=== PATIENT | female | born 1935 | race Caucasian/White ===

== ENCOUNTER 2017-08-02 16:19 | Emergency (ER) | payer SELFPAY ==
--- NOTE | 2017-08-02 16:52 | UC ---
Complaint Female HPI - HPI Summary HPI Summary: 82 yo WF h/o Alzheimer's and HTN looked after by her grandson c/o lower abd pain in UC today. Per daughter (who does not live with her) and son in law, pt reportedly also c/o CP AND abd pains. Pt wears depends and is unaware of her hydration status. According to her daughter pt is poorly looked after with a handicapped son at home and a son in law who is only able to come see her intermittently to see if she ate or not. Has h/o urinary incontinence and " wears depends" but not today for some reason. - History Of Current Complaint Chief Complaint: UCChestPain Stated Complaint: CHEST PAIN Time Seen by Provider: 08/02/17 16:37 Hx Obtained From: Patient Hx From Patient Unobtainable Due To: Other ?: No Onset/Duration: Lasting Days Severity Initially: Moderate Severity Currently: Moderate Pain Intensity: 5 Character: Dull - Allergies/Home Medications Allergies/Adverse Reactions: Allergies Allergy/AdvReac Type Severity Reaction Status Date / Time No Known Allergies Allergy Verified 08/02/17 16:25 Home Medications: Home Medications NK [No Home Medications Reported] 08/02/17 [History Confirmed 08/02/17] PMH/Surg Hx/FS Hx/Imm Hx Previously Healthy: Yes Cardiovascular History: Hypertension - Surgical History Surgical History: None - Social History Alcohol Use: None Substance Use Type: None Smoking Status (MU): Former Smoker Review of Systems Constitutional: Negative Skin: Negative Eyes: Negative ENT: Negative Respiratory: Negative Cardiovascular: Negative Gastrointestinal: Negative Genitourinary: Other - lower abd pains Motor: Negative Neurovascular: Negative Musculoskeletal: Negative Neurological: Negative Psychological: Negative All Other Systems Reviewed And Are Negative: Yes Physical Exam Triage Information Reviewed: Yes Completion Of Physical Exam Limited Due To: Dementia Appearance: No Pain Distress Vital Signs: Initial Vital Signs Temp 37.3 C 08/02/17 16:25 Pulse 70 08/02/17 16:25 Resp 18 08/02/17 16:25 BP 188/89 08/02/17 16:25 Pulse Ox 100 08/02/17 16:25 Eye Exam: Normal ENT Exam: Normal ENT: Positive: Pharynx normal Dental Exam: Normal Neck exam: Normal Neck: Positive: 1 Respiratory Exam: Normal Cardiovascular Exam: Normal Abdomen Description: Positive: Other: - suprapubic tenderness Musculoskeletal Exam: Normal Neurological Exam: Normal Psychological Exam: Normal Skin Exam: Normal Complaint Female Dx - Course Course Of Treatment: Pt lives with a handicapped son who is not able to take care of the pt with h/o Alzheimer's with urinary incontinence, SBP today in 190' s manually, EKG with sinus arrythmia but w/o STT changes or TWI. Pt in chronic neglect, Needs to go to ED for workup of HTN urgency, a positive UA which will require monitoring of pt clinically for urosepsis and most importantly for inpt admission and coordination with egg caser for permanent NH placement. Called ER and informed ER provider Radha that pt is being driven via private car to ER by her family. - Differential Dx/Diagnosis Provider Diagnoses: Hypertensive urgency. UTI Discharge - Discharge Plan Condition: Stable Disposition: HOME Patient Education Materials: Urinary Tract Infection in Women (ED) Referrals: No Primary Care Phys,NOPCP [Primary Care Provider] - Additional Instructions: please Go to ER PAIGE
[2017-08-02 17:17] VITALS: BP 190/94
[2017-08-02] MEDS ORDERED: cefTRIAXone VIAL(*) 1,000 MG VIAL IM ONE (17:34)
[2017-08-02] MEDS ORDERED: Lidocaine 1% MPF* 2 ML VIAL INJ ONE (17:39)
[2017-08-02] MEDS ORDERED: Lidocaine 1% MPF* 2 ML VIAL ONE (17:40)
== END 2017-08-02 18:30 | disposition home or self-care (01) ==
LOC: UCEAST 16:19
DX: I16.0 Hypertensive urgency (principal); I10 Essential (primary) hypertension; N39.0 Urinary tract infection, site not specified; F03.90 Unspecified dementia, unspecified severity, without behavioral disturbance, psychotic disturbance, mood disturbance, and anxiety; Z87.891 Personal history of nicotine dependence
CPT/HCPCS: 81003; 87086; 93005; 99202; G0463; J0696

== ENCOUNTER 2017-08-02 18:25 | Inpatient (IN) | payer SELFPAY ==
[2017-08-02] MEDS ORDERED: Aspirin Low Dose CHEW TAB* 81 MG PO ONE (19:44)
[2017-08-02] MEDS ORDERED: Labetalol IV* 5 MG/ML 20 ML VIAL IV PUSH ONE (19:45)
[2017-08-02 20:22] LABS: ABS Basophils 0 10^3/ul (0-0.2); ABS Eosinophils 0.1 10^3/ul (0-0.6); ABS Lymphocytes 1.5 10^3/ul (1.0-4.8); ABS Monocytes 0.3 10^3/ul (0-0.8); ABS Neutrophils 3.1 10^3/ul (1.5-7.7); ABS Nucleated RBC 0 10^3/ul; Eosinophil % 1.3 % (0-6); Hematocrit 41 % (35-47); Hemoglobin 14.1 g/dl (12.0-16.0); Lymphocyte % 29.5 % (25-47); Mean Corpuscular HGB Conc 34 g/dl (31-36); Mean Corpuscular Hemoglobin 31 pg (27-31); Mean Corpuscular Volume 90 fL (80-97); Mean Platelet Volume 8 um3 (7.4-10.4); Nucleated Red Blood Cells % 0; Platelet Count 144 10^3/ul (150-450); Red Blood Count 4.59 10^6/ul (4.0-5.4); Red Cell Distribution Width 14 % (10.5-15)
[2017-08-02 20:26] LABS: Urine Appearance Clear; Urine Blood Negative (Negative); Urine Color Straw; Urine Ketones Negative (Negative); Urine Protein Negative (Negative); Urine Urobilinogen Negative (Negative)
--- NOTE | 2017-08-02 20:35 | RAD ---
INDICATION: Chest pain COMPARISON: None TECHNIQUE: An AP portable view obtained at 2024 hours is submitted. FINDINGS: Bones/Soft Tissues: There are no acute bony findings. Cardiomediastinal: The cardiomediastinal silhouette is normal. Lungs: There are no infiltrates. Pleura: There are no pleural effusions. Other: None IMPRESSION: NO ACTIVE DISEASE.
[2017-08-02 20:37] LABS: INR 1.01 (0.77-1.02)
[2017-08-02 20:46] LABS: EGFR Non-African American 73.2 (>60)
--- NOTE | 2017-08-02 21:49 | ED ---
Asael Pimentel Thomas, scribed for Eran Miller MD on 08/02/17 at 1941 . HPI Chest Pain - HPI Summary HPI Summary: The patient is an 82 year old female transferred from urgent care with chest pains. It is unclear when the chest pain began. In the emergency department, the patient denies any chest pain. At baseline, the patient is confused due to Alzheimers, and the history is obtained from her daughter. At urgent care, the patient was found to have elevated blood pressure and a UTI, and she was transferred to the emergency department. Per daughter, the patient has not been to a physician in 25 years. Her past medical history is unknown. The family requests a social work consult. LEVEL 5 CAVEAT: HPI limited by dementia. - History of Current Complaint Chief Complaint: EDUrogenitalProblems Time Seen by Provider: 08/02/17 19:27 Hx Obtained From: Family/Circus Hand Hx From Patient Unobtainable Due To: Dementia Onset/Duration: Resolved Current Severity: None Pain Intensity: 0 Pain Scale Used: 0-10 Numeric Alleviating Factor(s): Spontaneous Resolution Associated Signs and Symptoms: Positive: Chest Pain. Negative: Fever - Allergy/Home Medications Allergies/Adverse Reactions: Allergies Allergy/AdvReac Type Severity Reaction Status Date / Time No Known Allergies Allergy Verified 08/02/17 16:25 PMH/Surg Hx/FS Hx/Imm Hx Cardiovascular History: Reports: Hx Hypertension Neurological History: Reports: Hx Dementia Infectious Disease History: No Infectious Disease History: Denies: Traveled Outside the [place] in Last 30 Days - Family History Known Family History: Positive: Unknown - LEVEL 5 CAVEAT: HPI limited by dementia - Social History Alcohol Use: None Substance Use Type: Reports: None Hx Tobacco Use: Yes Smoking Status (MU): Former Smoker Review of Systems Negative: Fever Positive: Chest Pain All Other Systems Reviewed And Are Negative: No - Comments Additional Review of Systems Comments: LEVEL 5 CAVEAT: ROS limited by dementia. Physical Exam - Summary Physical Exam Summary: VITAL SIGNS: Reviewed. GENERAL: Patient is an elderly female who is lying comfortable in the stretcher in no acute distress. She is a poor historian. Patient is not in any acute respiratory distress. HEAD AND FACE: No signs of trauma. No ecchymosis, hematomas or skull depressions. No sinus tenderness. EYES: PERRLA, EOMI x 2, No injected conjunctiva, no nystagmus. EARS: Hearing grossly intact. Ear canals and tympanic membranes are within normal limits. MOUTH: Oropharynx within normal limits. NECK: Supple, trachea is midline, no adenopathy, no JVD, no carotid bruit, no c- spine tenderness, neck with full ROM. CHEST: Symmetric, no tenderness at palpation LUNGS: Clear to auscultation bilaterally. No wheezing or crackles. CVS: Regular rate and rhythm, S1 and S2 present, no murmurs or gallops appreciated. ABDOMEN: Soft, non-tender. No signs of distention. No rebound no guarding, and no masses palpated. Bowel sounds are normal. EXTREMITIES: She has trace pitting edema bilaterally. FROM in all major joints, no cyanosis or clubbing. NEURO: Alert and oriented to person only. No acute neurological deficits. Speech is normal and follows commands. SKIN: Dry and warm LEVEL 5 CAVEAT: physical exam limited by dementia. Triage Information Reviewed: Yes Vital Signs On Initial Exam: Initial Vitals Temp Pulse Resp BP Pulse Ox 98.3 F 64 16 193/89 99 08/02/17 19:04 08/02/17 19:04 08/02/17 19:04 08/02/17 19:04 08/02/17 19:04 Vital Signs Reviewed: Yes Completion Of Physical Exam Limited Due To: Dementia Diagnostics - Vital Signs Vital Signs Temp Pulse Resp BP Pulse Ox 08/02/17 19:31 68 98 08/02/17 19:04 98.3 F 64 16 193/89 99 - Laboratory Result Diagrams: 08/02/17 20:13 08/02/17 20:13 Lab Statement: Any lab studies that have been ordered have been reviewed, and results considered in the medical decision making process. - Radiology CXR Xray Interpretation: No Acute Changes - NO ACTIVE DISEASE. Dr. Miller has reviewed this report. Radiology Interpretation Completed By: Radiologist - EKG 19:54 Cardiac Rate: NL EKG Rhythm: Sinus Rhythm - at 67 BPM EKG Interpretation: Nonspecific T waves in inferior leads. Re-Evaluation - Re-Evaluation First Eval Re-Evaluation Time: 21:41 Comment: Discussed results. Patient will be admitted. Chest Pain Course/Dx - Course Assessment/Plan: The patient is an 82 year old female with a history of dementia transferred from urgent care with chest pains. In the ED course the patient was given ASA and Labetalol. Bloodwork and urinalysis were obtained. EKG and CXR were obtained. The patient is diagnosed with hypertension and chest pain. She will be admitted by Dr. Bright. - Diagnoses Provider Diagnoses: Hypertension, Chest pain - Provider Notifications Discussed Care Of Patient With: Eli Bright Time Discussed With Above Provider: 21:40 Instructed by Provider To: Admit As Inpatient Discharge - Discharge Plan Condition: Stable Disposition: ADMITTED TO [facility] Referrals: No Primary Care Phys,NOPCP [Primary Care Provider] - The documentation as recorded by the Asael singh Thomas accurately reflects the service I personally performed and the decisions made by me, Eran Miller MD.
[2017-08-02] MEDS ORDERED: Senna TAB PO PRN (22:30)
[2017-08-02] MEDS ORDERED: Acetaminophen TAB* 325 MG PO PRN (22:30)
[2017-08-02] MEDS ORDERED: Docusate CAP* 100 MG PO PRN (22:30)
[2017-08-02] MEDS ORDERED: Ondansetron INJ* 2 MG/ML VIAL IV PRN (22:30)
[2017-08-02] MEDS ORDERED: Al Hydrox/Mg Hydrox/Simet LIQ* 30 ML UDC PO PRN (22:30)
[2017-08-03] MEDS: amLODIPine TAB* 5 MG PO SCH ×2 (00:17→08:27)
[2017-08-03] MEDS: Heparin VIAL(*) 5000 UNITS/ML VIAL (FIVE THOUSAND) SUBCUT SCH ×3 (05:29→21:29)
[2017-08-03] MEDS: Aspirin EC Low Dose* 81 MG TAB.EC PO SCH (08:27)
--- NOTE | 2017-08-03 08:51 | HP ---
HISTORY AND PHYSICAL: DATE OF ADMISSION: 08/02/17 TIME OF EVALUATION: 0. PRIMARY CARE PROVIDER: The patient does not have a primary care physician. CHIEF COMPLAINT: Concern for inability to be cared for at home. HISTORY OF PRESENT ILLNESS: This is an 82-year-old female with advanced Alzheimer's who presented to the emergency room from urgent care for concern of urosepsis, hypertensive urgency, incoordination of mcc placement. The family has provided the history. The daughter is at the bedside as the patient is unable to provide this due to her advanced dementia. The patient lives with her handicapped son. The son called because the patient was complaining of chest pain. The daughter came over. She appeared sweaty, complaining of chest pain at that time. They brought her to urgent care. They noted that her blood pressure was elevated. They were concerned about a urinary tract infection. They sent her the emergency room for further evaluation. On my encounter, the patient any pain. No shortness of breath. She was alert and oriented x1. They state she has not seen a doctor in years that she has lost a significant amount for weight since she has been diagnosed with Alzheimer's. In terms of her Alzheimer's, she does not recognize anyone. She is unable to express her needs. She does have trouble with eating. They have to get soft food for her. No recent URI illness. No fever. No nausea, vomiting, or diarrhea per family. I discussed with the family about them taking her home and caring for her. They state they are unable to as they have to care of the son as well. Otherwise, unable to obtain review of systems due to the patient's advanced dementia. PAST MEDICAL HISTORY: History of Alzheimer's disease, appears to be advanced. MEDICATIONS: None. FAMILY HISTORY: Mother from dementia. Father from unknown cause. SOCIAL HISTORY: She lives at home with her son who has a developmental disability. She does ambulate, but unable to express her needs. She is incontinent of stool and urine. She quit smoking as the family states she forgot to continue this. She used 2 to 3 packs per day for many years. No alcohol use. She does not have a healthcare proxy. The daughter has been in the process of trying to pursue this. Her name is Elvira Thompson. Code status as of now is full code. REVIEW OF SYSTEMS: Unable to obtain, limited due to patient's dementia. PHYSICAL EXAMINATION GENERAL: No acute distress, resting comfortably with her family at the bedside. VITAL SIGNS: Temp 98.3, pulse is 68, respiratory rate is 16, oxygen saturation is 97% on room air, blood pressure 155/65. HEENT: Head normocephalic. Pupils equal and reactive, anicteric. Oropharynx: Mucous membranes moist. NECK: Supple, no lymphadenopathy. RESPIRATORY: Diminished breath sounds. No wheezes, rhonchi, or rales. CARDIAC: Regular rate and rhythm. Soft systolic murmur heard throughout. ABDOMEN: Soft, nontender, and nondistended. EXTREMITIES: +1 nonpitting edema, +1 DPs. She has chronic nail onychomycosis in nails of both lower extremities. NEUROLOGIC: No gross focal neurologic deficits. Alert and oriented x1. LABORATORY DATA: White count is 5, hemoglobin 14.1, hematocrit 41, and platelets 144. INR is 1.01. Sodium 138, potassium 3.5, chloride 104, bicarb 30 , BUN 12, creatinine 0.76, glucose 156. Troponin is 0. Albumin is 4. Urinalysis was unremarkable in the emergency room and in urgent care it shows 2 + leukocytes. RADIOGRAPHIC DATA: Chest x-ray shows no active disease. EKG shows normal sinus rhythm. ASSESSMENT: This is an 82-year-old female with advanced dementia who presents to the emergency room from urgent care for concern of needing a higher level of care. 1. Advanced dementia. Assessment: The patient's UA is unremarkable. She does not have evidence of urosepsis as mentioned by urgent care. She did have chest pain prior to arrival. I do not think it is unreasonable to trend her troponin. I would not pursue further workup. We will place a social work consult to help with coordination of care and monitor her blood pressures. We will hold off on starting her on an antihypertensive at this time. We will start her on a baby aspirin. 2. FEN: Regular soft diet. 3. DVT prophylaxis: The patient scores high risk. Placed her on heparin subcu t.i.d. 4. Code status: Right now is full code. She needs her proxy filled out, so they can update her MOLST form. TIME SPENT: Greater than 45 minutes spent doing history and physical, more than half time spent in direct patient contact. [id number]/[facility] #: [id number] SUNG
--- NOTE | 2017-08-03 10:01 | PN ---
Subjective Date of Service: 08/03/17 Interval History: She has been active this morning, tries to get out of bed frequently, but she has no complaints. She does not know where she is, and when I tell her she is in the hospital, she does not know why. She feels good and requests breakfast. No chest pain, shortness of breath, nausea, abdominal pain, fevers. Objective Active Medications: Acetaminophen (Tylenol Tab*) 650 mg PO Q4H PRN PRN Reason: FEVER/PAIN Al Hydrox/Mg Hydrox/Simethicone (Maalox Plus*) 30 ml PO Q6H PRN PRN Reason: INDIGESTION Amlodipine Besylate (Norvasc Tab*) 5 mg PO DAILY [facility] Last Admin: 08/03/17 08:27 Dose: 5 mg Aspirin (Aspirin Ec Low Dose*) 81 mg PO DAILY [facility] Last Admin: 08/03/17 08:27 Dose: 81 mg Docusate Sodium (Colace Cap*) 100 mg PO BID PRN PRN Reason: CONSTIPATION Heparin Sodium (Porcine) (Heparin Vial(*)) 5,000 units SUBCUT Q8HR [facility] Last Admin: 08/03/17 05:29 Dose: 5,000 units Ondansetron HCl (Zofran Inj*) 4 mg IV Q4H PRN PRN Reason: NAUSEA/VOMITING Senna (Senokot Tab*) 1 tab PO BID PRN PRN Reason: CONSTIPATION Vital Signs - 8 hr 08/03/17 08/03/17 03:18 07:43 Temperature 96.6 F 97.5 F Pulse Rate 55 51 Respiratory 16 18 Rate Blood Pressure 108/46 120/48 (mmHg) O2 Sat by Pulse 100 99 Oximetry Oxygen Devices in Use Now: None Appearance: alert, comfortable, male-pattern facial hair Eyes: No Scleral Icterus Ears/Nose/Mouth/Throat: - - poor dentition Neck: NL Appearance and Movements; NL JVP Respiratory: Symmetrical Chest Expansion and Respiratory Effort, Clear to Auscultation Cardiovascular: NL Sounds; No Murmurs; No JVD, RRR Abdominal: NL Sounds; No Tenderness; No Distention Lymphatic: No Cervical Adenopathy Extremities: No Edema Skin: No Rash or Ulcers Neurological: - - oriented only to person, cannot tell me the date, place, or her family members' names. follows simple commands, poor short term and exterminator helper termite recall. Result Diagrams: 08/02/17 20:13 08/02/17 20:13 Assess/Plan/Problems-Billing Assessment: 82 yo female with history of alzheimer dementia who is cared for by her son who has special needs, presented from urgent care with concern for hypertensive urgency and inability to care for herself at home. - Patient Problems (1) Alzheimer's dementia with behavioral disturbance Current Visit: Yes Status: Acute Code(s): G30.9 - ALZHEIMER'S DISEASE, UNSPECIFIED; F02.81 - DEMENTIA IN OTH DISEASES CLASSD ELSWHR W BEHAVIORAL DISTURB SNOMED Code(s): 5513395160372 Comment: appears advanced. her daughter reported to the ED that she is unable to care for herself at home at this time, need to discuss this with her. CM to pursue prison placement. (2) Hypertensive urgency Current Visit: Yes Status: Acute Code(s): I16.0 - HYPERTENSIVE URGENCY SNOMED Code(s): 031122370 Comment: she received labetalol 10mg IV in the ED; responded very quickly-- will not give any more iv antihypertensives given her sensitivity to them she is normotensive now no evidence of end-organ damage (3) HTN (hypertension) Current Visit: Yes Status: Acute Code(s): I10 - ESSENTIAL (PRIMARY) HYPERTENSION SNOMED Code(s): 70396198 Comment: amlodipine begun last night; will follow
[2017-08-03] MEDS ORDERED: QUEtiapine TAB* 25 MG PO ONE (11:38)
[2017-08-03] MEDS: CMCS Melatonin (NF) 3 MG TAB PO SCH (23:30)
--- NOTE | 2017-08-04 04:23 | PN ---
Progress Note - Progress Note Date of Service: 08/04/17 Note: Patient noted to be in Afib - confirmed by EKG. Not a candidate for anticoagulation in setting of being a high fall risk with advanced dementia. Currently rate controlled. Continue ASA 81 mg.
[2017-08-04] MEDS: Heparin VIAL(*) 5000 UNITS/ML VIAL (FIVE THOUSAND) SUBCUT SCH ×3 (05:38→20:56)
[2017-08-04] MEDS: amLODIPine TAB* 5 MG PO SCH (08:58)
[2017-08-04] MEDS: Aspirin EC Low Dose* 81 MG TAB.EC PO SCH (08:58)
--- NOTE | 2017-08-04 15:02 | PN ---
Subjective Date of Service: 08/04/17 Interval History: she was noted to be in atrial fibrillation overnight. no rate control was required, and she returned to normal sinus rhythm spontaneously. she has no complaints, says she just wants to "get home." Objective Active Medications: Acetaminophen (Tylenol Tab*) 650 mg PO Q4H PRN PRN Reason: FEVER/PAIN Al Hydrox/Mg Hydrox/Simethicone (Maalox Plus*) 30 ml PO Q6H PRN PRN Reason: INDIGESTION Amlodipine Besylate (Norvasc Tab*) 5 mg PO DAILY [facility] Last Admin: 08/04/17 08:58 Dose: Not Given Aspirin (Aspirin Ec Low Dose*) 81 mg PO DAILY [facility] Last Admin: 08/04/17 08:58 Dose: Not Given Docusate Sodium (Colace Cap*) 100 mg PO BID PRN PRN Reason: CONSTIPATION Heparin Sodium (Porcine) (Heparin Vial(*)) 5,000 units SUBCUT Q8HR [facility] Last Admin: 08/04/17 13:45 Dose: 5,000 units Melatonin (Melatonin (Nf)) 3 mg PO BEDTIME [facility] Last Admin: 08/03/17 23:30 Dose: 3 mg Ondansetron HCl (Zofran Inj*) 4 mg IV Q4H PRN PRN Reason: NAUSEA/VOMITING Senna (Senokot Tab*) 1 tab PO BID PRN PRN Reason: CONSTIPATION Vital Signs - 8 hr 08/04/17 08/04/17 08/04/17 08:53 09:36 11:23 Temperature 97.0 F 97.9 F Pulse Rate 67 64 Respiratory 18 18 16 Rate Blood Pressure 145/54 136/74 (mmHg) O2 Sat by Pulse 99 99 Oximetry Oxygen Devices in Use Now: None Appearance: alert, sitting up in bed eating lunch, disoriented Eyes: No Scleral Icterus Ears/Nose/Mouth/Throat: NL Teeth, Lips, Gums Neck: NL Appearance and Movements; NL JVP Respiratory: Symmetrical Chest Expansion and Respiratory Effort, Clear to Auscultation Cardiovascular: NL Sounds; No Murmurs; No JVD, RRR Abdominal: NL Sounds; No Tenderness; No Distention Lymphatic: No Cervical Adenopathy Extremities: No Edema Skin: No Rash or Ulcers Neurological: - - oriented only to person Result Diagrams: 08/02/17 20:13 08/02/17 20:13 Assess/Plan/Problems-Billing Assessment: 82 yo female with history of alzheimer dementia who is cared for by her son who has special needs, presented from urgent care with concern for hypertensive urgency and inability to care for herself at home. - Patient Problems (1) Alzheimer's dementia with behavioral disturbance Current Visit: Yes Status: Acute Code(s): G30.9 - ALZHEIMER'S DISEASE, UNSPECIFIED; F02.81 - DEMENTIA IN OTH DISEASES CLASSD ELSWHR W BEHAVIORAL DISTURB SNOMED Code(s): 3016813831296 Comment: plan for [facility] tomorrow; she is unable to go back home because she cannot care for herself (2) Hypertensive urgency Current Visit: Yes Status: Acute Code(s): I16.0 - HYPERTENSIVE URGENCY SNOMED Code(s): 468138531 Comment: received labetalol 10mg IV in the ed and was very sensitive to it she is normotensive now no evidence of end-organ damage (3) Paroxysmal atrial fibrillation Current Visit: Yes Status: Acute Code(s): I48.0 - PAROXYSMAL ATRIAL FIBRILLATION SNOMED Code(s): 876570644 Comment: resolved this morning. I have discussed this with her daughter and son-in-law and the risk of cva. I also discussed risks and benefits of anticoagulation with them. They are unsure, so I will check a TTE to help define risks/benefits of anticoagulation. (4) HTN (hypertension) Current Visit: Yes Status: Acute Code(s): I10 - ESSENTIAL (PRIMARY) HYPERTENSION SNOMED Code(s): 07926042 Comment: well controlled on amlodipine
--- NOTE | 2017-08-04 18:40 | ECHO ---
Patient: SHAVON HASSAN [facility] Rec#: [id number] : 1935 Date: 08/04/2017 Age: 82y Height: 144.8 cm / 57.0 in Weight: 51.3 kg / 113.1 lbs Sex: F BSA: 1.4 Room#: 406 Admit Date#: 08/03/2017 Type: Inpatient Referring: Gertrude Tripp MD Reading: Abbe Gomes DO Producer Arborist Manager: Florence Del Rosario RN RDCS Transthoracic Echocardiogram Indication: Atrial fibrillation BP: 136/74 HR: 69 Rhythm: NSR Findings History: Advanced Alzheimer's dementia, former smoker Technical Comments: The study quality is fair. The study is technically limited due to the patient's smoking history. The study was technically limited due to the patient's inability to lay in the left lateral decubitus position. Completed at 1700. Left Ventricle: The left ventricular chamber size is decreased. There is no left ventricular hypertrophy. The left ventricle appears hyperdynamic. The estimated ejection fraction is greater than 65%. Normal left ventricular diastolic filling is observed. The patient was unable to perform a Valsalva maneuver. Left Atrium: The left atrial chamber size is normal. Right Ventricle: The right ventricular chamber size and systolic function are within normal limits. Right Atrium: The right atrial cavity size is normal. Aortic Valve: The aortic valve structure is not well visualized. The aortic valve leaflets are mildly thickened. There is no evidence of aortic regurgitation. There is no evidence of aortic stenosis. Mitral Valve: The mitral valve leaflets are mildly thickened. There is mild mitral regurgitation. There is no evidence of mitral stenosis. Tricuspid Valve: The tricuspid valve leaflets are normal. There is trace tricuspid regurgitation. Unable to estimate the right ventricular systolic pressure. There is no tricuspid stenosis. Pulmonic Valve: The pulmonic valve structure is not well visualized. There is no evidence of pulmonic regurgitation. There is no pulmonic stenosis. Pericardium: There is no significant pericardial effusion. Aorta: There is no dilatation of the ascending aorta. There is no dilatation of the aortic arch. There is no dilation of the aortic root. Pulmonary Artery: The main pulmonary artery is not well visualized. Venous: The inferior vena cava appears normal in size. There is less than 50% respiratory change in the inferior vena cava dimension. Conclusions The left ventricular chamber size is decreased. There is no left ventricular hypertrophy. The left ventricle appears hyperdynamic. The estimated ejection fraction is greater than 70%. The left atrial chamber size is normal. The right ventricular chamber size and systolic function are within normal limits. No significant valvular abnormalities noted No prior studies available for comparison at time of interpretation. Measurements Name Value Normal Range RVDdMajor (2D) 2.3 cm (2.2 - 4.4) RAd ISD 4CH 4.2 cm (3.4 - 4.9) RA (A4C)W 3.2 cm (2.9 - 4.6) IVSd (2D) 0.9 cm (0.6 - 1) LVPWd (2D) 0.9 cm (0.6 - 1) LVIDd (2D) 3.3 cm (3.6 - 5.4) LVIDs (2D) 2.2 cm - LV FS (2D) 33 % (25 - 45) Aortic Annulus 2 cm (1.4 - 2.6) Ao root diameter (2D) 2.5 cm (2.1 - 3.5) Ascending Ao 2.7 cm (2.1 - 3.4) Aortic arch 2.2 cm (1.8 - 3.4) LA dimension (AP) 2D 3 cm (2.3 - 3.8) LAd ISD 4CH 4.3 cm (2.9 - 5.3) LA ISD 4CH W 3.4 cm (2.5 - 4.5) Name Value Normal Range LA ESV SP 4CH (A/L) 26 ml - LA ESV SP 2CH (A/L) 21 ml - LA ESV BP (A/L) 25 ml - LA ESV BP (A/L) index 17.8 ml/m2 - LA ESV SP 4CH (MOD) 25 ml - LA ESV SP 2CH (MOD) 20 ml - Name Value Normal Range MV E-wave Vmax 0.82 m/sec - MV deceleration time 267 msec - MV A-wave Vmax 0.8 m/sec - MV E:A ratio 1 ratio - LV septal e' Vmax 0.09 m/sec - LV lateral e' Vmax 0.09 m/sec - LV E:e' septal ratio 9.1 ratio - LV E:e' lateral ratio 9.1 ratio - Name Value Normal Range AV Vmax 1.5 m/sec - AV VTI 32.4 cm - AV peak gradient 8.6 mmHg - AV mean gradient 4.7 mmHg - LVOT Vmax 1.1 m/sec - LVOT VTI 25.2 cm - LVOT peak gradient 5 mmHg - LVOT mean gradient 3 mmHg - SHEYLA Vmax 0.58 m/sec - Name Value Normal Range IVC diameter 1.8 cm - Name Value Normal Range PV Vmax 0.51 m/sec -
[2017-08-04] MEDS: CMCS Melatonin (NF) 3 MG TAB PO SCH (20:49)
[2017-08-05] MEDS: Heparin VIAL(*) 5000 UNITS/ML VIAL (FIVE THOUSAND) SUBCUT SCH (06:34)
[2017-08-05 08:13] VITALS: BP 152/76
[2017-08-05] MEDS: amLODIPine TAB* 5 MG PO SCH (09:04)
[2017-08-05] MEDS: Aspirin EC Low Dose* 81 MG TAB.EC PO SCH (09:05)
--- NOTE | 2017-08-05 12:33 | DS ---
DATE OF ADMISSION: 08/02/2017. DATE OF DISCHARGE: 08/05/2017. PRINCIPAL DISCHARGE DIAGNOSES: 1. Advanced dementia. 2. Atrial fibrillation. PHYSICAL EXAMINATION AT THE TIME OF DISCHARGE: General: Alert, elderly female in no distress, walking the hallway frequently, oriented to self only. Vital Signs: Temperature 97.5, heart rate 66, blood pressure 152/76, pulse ox 100 percent on room air, respiratory rate 16. HEENT: Pupils 3 mm bilaterally and reactive to light. No nystagmus. Moist mucosa. No pharyngeal exudates or erythema. Neck: No JVP, no cervical lymphadenopathy. Chest: Regular rate and rhythm. No murmurs. PMI nondisplaced. Lungs: Clear bilaterally. Abdomen: Soft , nontender, nondistended. Extremities: No edema, no rashes, no ulcers. Neurologic: Strength 5+ throughout. Follows simple commands. Coordination intact. HOSPITAL COURSE BY PROBLEM: 1. Advanced dementia: Ms. Napier was admitted to the hospital due to her family's inability to care for her at home. She lived only with her son who has special needs and her daughter reported that she was no longer safe at home and that their family could not offer the level of care that she required. She was admitted under senior living admission and is being discharged to [facility]. 2. Hypertension: She was found to be in hypertensive urgency in the emergency department. She responded very sensitively to Labetalol 10 mg IV. She was started on Amlodipine 5 mg daily and has had good control with this prescription which is new for her. She is being discharged on Amlodipine 5 mg daily. 3. New onset atrial fibrillation: She was noted to be in A-fib with RVR on telemetry during this admission. She has never been found to have A-fib or told that she had is before. She did require IV Metoprolol, but converted to normal sinus rhythm on her own. This was discussed at length with her daughter , Elvira, and her risk for stroke. An echocardiogram was performed that showed no valvular abnormalities. Her daughter, Elvira, reports that Ms. Napier's livelihood is based heavily on her activity level while she is in the hospital, even she is witnessed to be doing laps around the hallways all day long further confirming that her ambulation is very important to her. Her daughter and I discussed that a stroke could be devastating to Ms. Napier. We also extensively discussed the risks of bleeding, especially in an elderly female with advanced dementia; however, at this time, given her elevated CHADS-2 VASc score and low HAS-BLED score, her daughter has elected to continue with Eliquis. She qualifies for low dose Eliquis at 2.5 mg b.i.d. and will be discharged on this medications which is new for her. She required no rate controlling medications after she converted. 4. Disposition: Ms. Napier is being discharged to [facility] on with her daughter Elvira at the bedside. FOLLOW-UP NEEDED: Ms. Napier should be re-evaluated regularly for the safety of a novel oral anticoagulant and the risks versus benefits should be routinely readdressed with her family as her dementia advances. This has been discussed with her daughter. [id number]/[facility] #: [id number] MTDD
== END 2017-08-05 12:40 | DRG 57 ==
LOC: ED 18:25 → MED 22:30 → OBSVTOIN 08-03 15:30
PROVIDERS: ADMIT Pediatrics; ATTEND Internal Medicine
DX: G30.9 Alzheimer's disease, unspecified (principal); F02.81 Dementia in other diseases classified elsewhere, unspecified severity, with behavioral disturbance; I48.0 Paroxysmal atrial fibrillation; I16.0 Hypertensive urgency; R15.9 Full incontinence of feces; R32 Unspecified urinary incontinence; I10 Essential (primary) hypertension; Z87.891 Personal history of nicotine dependence; Z81.8 Family history of other mental and behavioral disorders
CPT/HCPCS: 36415; 71045; 80053; 81003; 83735; 84443; 84484; 85025; 85610; 85730; 93005; 93306; 99284; A9270-GY; J1644